=== PATIENT | female | born 1955 | race Hispanic/Latino ===

== ENCOUNTER 2024-06-26 10:24 | Outpatient (RCR) | payer MEDICARE | END 2024-07-01 | LOC: OT 10:24 | PROVIDERS: ATTEND Specialist | DX: S42.202A Unspecified fracture of upper end of left humerus, initial encounter for closed fracture (principal) ==

== ENCOUNTER 2024-07-30 14:00 | Outpatient (RCR) | payer MEDICARE | END 2024-07-31 | LOC: OT 14:00 | PROVIDERS: ATTEND Specialist | DX: S42.202A Unspecified fracture of upper end of left humerus, initial encounter for closed fracture (principal) ==